=== PATIENT | male | born 1930 | race Caucasian/White ===

== ENCOUNTER 2017-02-08 10:32 | Inpatient (IN) | payer OTHER ==
[~2017-02-08] VITALS: Ht 182.9 cm; Wt 87.1 kg
--- NOTE | ~2017-02-08 | EKG ---
[facility] [place] [address] ELECTROCARDIOGRAM REPORT Name: DAGOBERTO MARCANO SEVERIANO Room #: [id number] Admission: 02/08/17 Attend Phys: Discharge: Date of : 30 Report #: [id number] THIS REPORT FOR: //name// [facility] ED Test Date: 2017-02-08 Test Time: 10:57:31 Pat Name: DAGOBERTO MARCANO Department: Room: Gender: Load Tester: Raissa CARPENTER : 1930 Requested By: Abhilash Rodriguez Order Number: [id number] MD: Shane Barbosa Measurements Intervals [place] Rate: 67 P: 14 UT: 231 QRS: -52 QRSD: 109 T: 24 QT: 432 QTc: 456 Interpretive Statements Sinus rhythm Prolonged UT interval Probable left atrial enlargement Incomplete RBBB and LAFB Left ventricular hypertrophy Compared to ECG 01/10/2017 01:10:32 no change Electronically Signed On 02-08-2017 12:45:12 CDT by Shane Barbosa [email or web address] <ELECTRONICALLY SIGNED> By: Shane Barbosa MD 02/08/17 1245 1057 1057 MD LEIA Brown
--- NOTE | ~2017-02-08 | HC ---
[facility] [place] [address] CONSULTATION Name: DAGOBERTO MARCANO Room #: 412-P [facility] IN M.R.#: [id number] Admission: 02/08/17 Attend Phys: Kwaku Atkinson MD Discharge: 02/10/17 Date of : 30 Report #: [id number] THIS REPORT FOR: //name// CC: NO PCP Kwaku Atkinson DATE OF SERVICE: 02/09/2017 REASON FOR CONSULTATION: Bilateral congenital flat feet deformity. HISTORY OF PRESENT ILLNESS: The patient was admitted to hospital for multiple falls within the last couple of days. I was consulted regarding lack of stability and weakness to bilateral lower extremities, stemming from flat foot deformity. The patient was seen at bedside today, resting comfortably. The patient denies any pain to either foot or ankle and states that he has had flat foot deformity in his entire life. He states that he utilizes custom shoes with custom inserts due to significant of flat foot deformity and was wearing the shoes at time of fall. He denies any other concerns at visit today. REVIEW OF SYSTEMS: Negative other than that discussed in HPI. PAST MEDICAL HISTORY: 1. Hypertension. 2. Hypercholesterolemia. PAST SURGICAL HISTORY: 1. Bilateral knee replacements. 2. Tonsillectomy. 3. Hiatal hernia repair. HOME MEDICATIONS: 1. Simvastatin 20 mg. 2. Metoprolol 25 mg. ALLERGIES: No known drug allergies. SOCIAL HISTORY: Tobacco use, the patient denies. Alcohol use, the patient denies. Recreational drug use, the patient denies. PHYSICAL EXAMINATION: GENERAL: A and O times 3, NAD. LOWER EXTREMITIES: VASCULAR: DP pulses 1/4 bilaterally, PT pulses 0/4 bilaterally. Capillary fill time within normal limits, digits 1 through 5 bilaterally. Moderate lower extremity edema bilaterally with telangiectasias and significant varicosities diffusely throughout. There is significant hemosiderin deposit like changes to [facility] [address] [place] [address] CONSULTATION Name: DAGOBERTO MARCANO Room #: 412-P [facility] IN .R.#: [id number] Admission: 02/08/17 Attend Phys: Kwaku Atkinson MD Discharge: 02/10/17 Date of : 30 Report #: [id number] bilateral lower extremities. DERMATOLOGICAL: Skin is thin, shiny, and atrophic with absent hair growth. Toenails 1 through 5 bilaterally are thickened and dystrophic. Callus formation is noted to distal tip of bilateral second digits. MUSCULOSKELETAL: Significant flat foot deformity is noted bilaterally with abducted forefoot, complete collapsed arches, and medial talar bulge bilaterally. Flatfoot deformity is semirigid bilaterally. There are no focal points of maximal pain and only minimal diffuse tenderness noted throughout both feet and ankles. RADIOLOGY: Three views bilateral ankle and 2 views bilateral foot x-rays were reviewed. There is noted oblique fracture to lateral malleolus at ankle joint level. Minimal diastasis is noted laterally without evidence of significant lateral gutter widening or syndesmotic displacement. Significant flat foot deformity is noted with decreased calcaneal inclination angle bilaterally, abduction of forefoot with uncovering of the talar head bilaterally. Otherwise, no other acute osseous articular abnormalities present. There is noted calcifications of vessels throughout the foot and lower extremity. ASSESSMENT: 1. Left fibular fracture, nondisplaced. 2. Talipes valgus bilaterally. 3. Peripheral vascular disease. PLAN: The patient was seen and examined and all clinical results were reviewed. Complication was had regarding access to radiographs and electronic medical record through [facility] at the time of consultation, Friday, I was unable to review x-rays or report. This was rectified on Friday once [facility] [employer] Department was able to correct error and logged in. At that point, the patient had been discharged and fibular fracture was not seen until after I was obtained access to the radiographs on Friday evening. I was never informed of said fracture and the patient was discharged without appropriate stabilization. I will follow up with the patient in my office to establish immediate care for fibular fracture. No surgical intervention appears to be necessary regarding fracture and the patient would benefit from GameDay style ankle brace as opposed to walking boot or cast due to significant instability and weakness. The patient will also likely benefit from home health care or placement in group home facility during this healing time. The patient should continue with supportive custom shoes and custom inserts given significant flat foot deformity. Flat foot deformity is a chronic condition that does not require emergent surgical correction and the patient may likely benefit from bracing in the future, again this is something that can be done on an outpatient basis and I will follow up with the patient regarding potential [address] [address] CONSULTATION Name: DAGOBERTO MARCANO Room #: 412-P [facility] IN M.R.#: [id number] Admission: 02/08/17 Attend Phys: Kwaku Atkinson MD Discharge: 02/10/17 Date of : 30 Report #: [id number] lower extremity bracing for talipes valgus deformity. The patient is in agreement with treatment plan and will follow up as directed. By: 1712 0102 Eric Llamas, LUISITO /leanna
[2017-02-08 10:32] VITALS: BP 159/103
[~2017-02-08 10:32] MED LIST: CIPRO500 MG; COUMADIN 5 MG TA5 M1 PO; FUROSEMIDE 20 M20 M1 PO; HYDROCODON-ACE1 EAC7 PO; LISINOPRIL20 MG PO; METOPROLOL SUCC25 M1 PO; NORCO 5-325 TA1 EACH PO; NORCO 7.5-3251 EACH PO; PAROXETINE HCL10 MG PO; SIMVASTATIN20 MG PO
[2017-02-08 11:12] LABS: ABSOLUTE NEUTROPHILS 4.5 thou/uL (1.4-8.2); BASOPHILS 0.5 % (0.0-2.0); EOSINOPHILS 1.1 % (0.0-3.0); HEMATOCRIT 41.5 % (42.0-52.0); HEMOGLOBIN 13.5 gm/dL (14.0-18.0); LYMPHOCYTES 24.3 % (24.0-44.0); MCH 30.6 pg (26.0-34.0); MCHC 32.7 g/dL (28.0-37.0); MCV 93.7 fL (80.0-100.0); MONOCYTES 10.4 % (1.0-8.0); PLATELET COUNT 106 thou/uL (150-400); POLYS 63.7 % (36.0-66.0); RBC 4.43 mil/uL (4.50-6.00); RDW 15.7 % (10.5-14.5)
[2017-02-08 11:13] LABS: MANUAL DIFF NO
[2017-02-08 11:23] LABS: ANION GAP 9 mmol/L (7-16); BUN 23 mg/dL (7-18); CALCIUM 8.8 mg/dL (8.5-10.1); CHLORIDE 105 mmol/L (98-107); CO2 25 mmol/L (21-32); CREATININE 0.9 mg/dL (0.6-1.3); GLUCOSE 94 mg/dL (70-99); POTASSIUM 4.5 mmol/L (3.5-5.1); SODIUM 139 mmol/L (136-145)
[2017-02-08 11:30] LABS: ALBUMIN 3.1 g/dL (3.4-5.0); ALKALINE PHOSPHATASE 59 U/L (46-116); SGOT 29 U/L (15-37); SGPT 12 U/L (30-65); TOTAL BILIRUBIN 0.9 mg/dL (<0.1-1.0); TOTAL PROTEIN 6.7 g/dL (6.4-8.2); TROPONIN-I < 0.04 ng/mL (<0.04-0.07)
[2017-02-08 11:34] LABS: URINE BILIRUBIN NEGATIVE (Negative); URINE BLOOD TRACE (Negative); URINE COLOR YELLOW; URINE GLUCOSE-RANDOM* NEGATIVE (Negative); URINE KETONES NEGATIVE (Negative); URINE LEUKOCYTES-REFLEX NEGATIVE (Negative); URINE PROTEIN (DIPSTICK) TRACE (Negative); URINE SPECIFIC GRAVITY 1.015 (1.003-1.035); URINE UROBILINOGEN 0.2 E.U./dl (0.2-1.0)
[2017-02-08 13:54] VITALS: BP 142/79
[2017-02-08 14:45] VITALS: BP 166/98
[2017-02-08 20:41] VITALS: BP 134/71
[2017-02-09 00:02] VITALS: BP 145/73
[2017-02-09 04:00] VITALS: BP 140/82
[2017-02-09 05:14] LABS: EOSINOPHILS 3.9 % (0.0-3.0); HEMATOCRIT 37.5 % (42.0-52.0); HEMOGLOBIN 12.4 gm/dL (14.0-18.0); LYMPHOCYTES 37.7 % (24.0-44.0); MCH 30.7 pg (26.0-34.0); MCHC 33.1 g/dL (28.0-37.0); MCV 92.6 fL (80.0-100.0); MONOCYTES 11.5 % (1.0-8.0); POLYS 45.9 % (36.0-66.0); RBC 4.05 mil/uL (4.50-6.00); RDW 15.5 % (10.5-14.5); WBC 6.6 thou/uL (4.0-11.0)
[2017-02-09 05:16] LABS: MANUAL DIFF NO
[2017-02-09 05:23] LABS: CALCIUM 8.6 mg/dL (8.5-10.1); CREATININE 0.9 mg/dL (0.6-1.3); POTASSIUM 3.8 mmol/L (3.5-5.1)
[2017-02-09 05:55] LABS: PLATELET COUNT 98 thou/uL (150-400); PLATELET ESTIMATE SLIGHTLY DECREASED
[2017-02-09 08:00] VITALS: BP 155/81
[2017-02-09 12:00] VITALS: BP 181/73
[2017-02-09 16:00] VITALS: BP 179/83
[2017-02-09 21:25] VITALS: BP 167/80
[2017-02-10 04:35] VITALS: BP 167/86
[2017-02-10 08:00] VITALS: BP 169/80
[2017-02-10 16:06] VITALS: BP 168/80
== END 2017-02-10 17:34 | disposition home or self-care (01) | DRG 563 ==
LOC: ER 10:32 → 4N 13:26 → EROBS 13:26 → ER 13:54 → 4N 14:00
PROVIDERS: Internal Medicine Geriatric Medicine; Physician Assistant
DX: S82.402A Unspecified fracture of shaft of left fibula, initial encounter for closed fracture (principal); Q66.6 Other congenital valgus deformities of feet; I10 Essential (primary) hypertension; E78.5 Hyperlipidemia, unspecified; I73.9 Peripheral vascular disease, unspecified; E78.00 Pure hypercholesterolemia, unspecified; Z90.49 Acquired absence of other specified parts of digestive tract; Z28.21 Immunization not carried out because of patient refusal; W18.39XA Other fall on same level, initial encounter; Y93.89 Activity, other specified; Y92.89 Other specified places as the place of occurrence of the external cause; Y99.8 Other external cause status
CPT/HCPCS: 10091

== ENCOUNTER 2018-05-03 21:51 | Inpatient (IN) | payer OTHER, SELFPAY ==
[~2018-05-03] VITALS: Ht 182.9 cm; Wt 94.8 kg
--- NOTE | ~2018-05-03 | HC ---
[facility] [place] [address] CONSULTATION Name: DAGOBERTO MARCANO Room #: 462-P ADM IN M.R.#: [id number] Admission: 05/03/18 Attend Phys: Harvey Hook DO Discharge: Date of : 30 Report #: [id number] THIS REPORT FOR: //name// CC: Harvey SALAZAR PCP DATE OF SERVICE: 05/05/2018 Cardiology Consultation CHIEF COMPLAINT: Chest pain. HISTORY OF PRESENT ILLNESS: This is an 88-year-old gentleman presenting with shortness of breath and chest discomfort. He reports having 2 episodes at home, typically occurring with walking. He describes the pain going across the chest area. He denies any associated symptoms of diaphoresis, palpitations or lightheadedness. He has had 2 episodes at home and was admitted to the hospital. Several troponin levels are negative. An echo revealed normal LV systolic function and fulm-rf-xovohgxi aortic insufficiency/mitral regurgitation. A pharmacologic nuclear stress test reveals inferolateral ischemia. The patient has a history of hypertension, hypercholesterolemia, and peripheral neuropathy. He uses a walker for ambulation. PAST MEDICAL HISTORY: Remote history of left calf hematoma, had been on warfarin, for unknown reason. History of hypertension, hypercholesterolemia, history of peripheral neuropathy with falls. ALLERGIES: None. MEDICATIONS AT HOME: Metoprolol 50 mg daily, Zocor 20 mg, and aspirin. SOCIAL HISTORY: The patient lives alone. Denies any tobacco use. FAMILY HISTORY: Negative for premature CAD. REVIEW OF SYSTEMS: A full 10-point review of systems performed. Only the pertinent positives and negatives are described in the HPI. PHYSICAL EXAMINATION: VITAL SIGNS: Blood pressure is 140/80, heart rate is 60 beats per minute. GENERAL APPEARANCE: This is an elderly appearing male in no acute distress. HEENT: Normocephalic. Sclerae are anicteric. ENT: Oral mucosa moist. NECK: Supple. LUNGS: Clear to auscultation. CARDIAC: Regular rate and rhythm, S1, S2 positive, 1/6 systolic murmur. [facility] [address] [place] [address] CONSULTATION Name: DAGOBERTO MARCANO Room #: [facility] ADM IN M.R.#: [id number] Admission: 05/03/18 Attend Phys: Harvey Hook DO Discharge: Date of : 30 Report #: [id number] ABDOMEN: Soft, nontender. EXTREMITIES: No cyanosis, 1+ ankle edema. DATA: ECG reveals sinus rhythm, LVH, incomplete right bundle-branch block, poor R-wave progression. ASSESSMENT AND PLAN: 1. Chest pain, with an abnormal nuclear stress test. He has onset of symptoms with mild levels of physical exertion at home. We discussed the pros and cons of medical therapy versus a cardiac catheterization. Given his presentation, the patient wishes to proceed with an angiogram. 2. 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 3. Hypercholesterolemia, continue with statin therapy. 4. Edema, consider compression stockings and diuretic therapy. <ELECTRONICALLY SIGNED> By: Shane Barbosa MD 05/06/18 0756 0807 0920 Shane Barbosa MD /nt
--- NOTE | ~2018-05-03 | 2DMMODE ---
[place] [address] [facility] [place] [address] 2 D/M-MODE ECHOCARDIOGRAM Name: DAGOBERTO MARCANO EDWIN Room #: 462-P [facility] IN M.R.#: [id number] Admission: 05/03/18 Attend Phys: Harvey Hook, Discharge: Date of : 30 Date of Service: 05/04/18 [facility] Report #: [id number] THIS REPORT FOR: //name// APPROVED REPORT Study performed: 05/04/2018 08:22:30 EXAM: Comprehensive 2D, Doppler, and color-flow Echocardiogram Patient Location: Echo lab Room #: 462 Status: routine BSA: 2.11 HR: 55 bpm BP: 168/86 mmHg Rhythm: NSR Other Information Study Quality: Adequate Indications Dyspnea, chest pain, dizziness. Hx: HTN, HLP 2D Dimensions RVDd: 34.83 mm LVEF(%): 50.60 (>50%) IVSd: 13.68 (7-11mm) LVOT Diam: 23.14 (18-24mm) LVDd: 46.75 mm PWd: 11.90 (7-11mm) Ascending Ao: 49.70 (22-36mm) LVDs: 34.73 (25-40mm) Aortic Root: 48.52 mm Schwab's LVEF: 50.60 % Volumes Left Atrial Volume (Systole) Single Plane 4CH: 61.78 mL Single Plane 2CH: 78.60 mL LA ESV Index: 38.00 mL/m2 Aortic Valve AoV Peak Juni.: 1.81 m/s AO Peak Gr.: 13.10 mmHg LVOT Max P.98 mmHg LVOT Max V: 1.00 m/s SHIRLEY Vmax: 2.32 cm2 Mitral Valve E/A Ratio: 0.8 MV Decel. Time: 510.82 ms [facility] [place] [address] 2 D/M-MODE ECHOCARDIOGRAM Name: DAGOBERTO MARCANO Room #: 462-P [facility] IN M.R.#: [id number] Admission: 05/03/18 Attend Phys: Harevy Hook, Discharge: Date of : 30 Date of Service: 05/04/18 [facility] Report #: [id number] MV E Max Juni.: 0.48 m/s MV A Juni.: 0.60 m/s MV PHT: 148.14 ms IVRT: 129.18 ms Pulmonary Valve PV Peak Juni.: 0.76 m/s PV Peak Gr.: 2.30 mmHg Tricuspid Valve TR Peak Juni.: 3.20 m/s RAP Estimate: 10.00 mmHg TR Peak Gr.: 41.04 mmHg PA Pressure: 51.00 mmHg Left Ventricle The left ventricle is normal size. There is normal LV segmental wall motion. Mild concentric left ventricular hypertrophy. Left ventricular systolic function is normal. LVEF is 55%. Mild diastolic dysfunction is present (impaired relaxation pattern). Right Ventricle The right ventricle is normal size. The right ventricular systolic function is normal. Atria Left atrium is mildly dilated. Right atrium is mildly dilated. Aortic Valve Aortic valve is moderately calcified. Mild to moderate aortic regurgitation. There is no aortic valvular stenosis. Mitral Valve Mitral valve leaflets are mildly thickened. Mild to moderate mitral annular calcification. Mild to moderate mitral regurgitation. No evidence of mitral valve stenosis. Tricuspid Valve The tricuspid valve is normal in structure. Moderate tricuspid regurgitation. Estimated PAP is 50mmHg. Pulmonic Valve The pulmonary valve is normal in structure. Mild pulmonic regurgitation. Great Vessels Aortic root is dilated at 4.9cm. 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 [address] [address] 2 D/M-MODE ECHOCARDIOGRAM Name: DAGOBERTO MARCANO Room #: 462-P [facility] IN [facility]#: [id number] Admission: 05/03/18 Attend Phys: Harvey Hook, Discharge: Date of : 30 Date of Service: 05/04/18 [facility] Report #: [id number] IVC is normal in size and collapses <50% with inspiration. Pericardium There is no pericardial effusion. <Conclusion> Left ventricular systolic function is normal. There is normal LV segmental wall motion. LVEF is 55%. Mild diastolic dysfunction Left atrium is mildly dilated. Aortic valve is moderately calcified. Mild to moderate aortic regurgitation, no stenosis. Mitral valve leaflets are mildly thickened. Mild to moderate mitral regurgitation. Moderate tricuspid regurgitation. Estimated pulmonary artery pressure of 50mmHg. 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 There is no pericardial effusion. <ELECTRONICALLY SIGNED> By: Jeremy Christian MD, FACC 05/04/18 1007 1007 1007 Jeremy Christian MD, FACC /INF
--- NOTE | ~2018-05-03 | EKG ---
[place] [address] [facility] [email or web address] [address] ELECTROCARDIOGRAM REPORT Name: DAGOBERTO MARCANO Room #: 462-P ADM IN M.R.#: [id number] Admission: 05/03/18 Attend Phys: Harvey Hook DO Discharge: Date of : 30 Report #: [id number] THIS REPORT FOR: //name// [facility] ED Test Date: 2018-05-03 Test Time: 21:58:09 Pat Name: DAGOBERTO MARCANO Department: Room: Gender: M Supervisor [employer]: DELMI : 1930 Requested By: Angela Maciel Order Number: [id number] MD: Jeremy Christian Measurements Intervals [place] Rate: 58 P: -8 [place]: 243 QRS: -46 QRSD: 110 T: 31 QT: 438 QTc: 431 Interpretive Statements Sinus rhythm Prolonged [place] interval Incomplete RBBB and LAFB RSR' in V1 or V2, right VCD Left ventricular hypertrophy Poor R wave progression Compared to ECG 02/08/2017 10:57:31 No significant change was found Electronically Signed On 05-04-2018 8:58:25 CDT by Jeremy Christian [email or web address] <ELECTRONICALLY SIGNED> By: Jeremy Christian MD, [facility] 05/04/18 0858 2158 2158 Jeremy Christian MD, [facility] /EPI
--- NOTE | ~2018-05-03 | CATHLAB ---
[place] [address] [employer] [place] [address] INVASIVE PROCEDURE REPORT Name: JEETDAGOBERTO العلي Room #: 462-P ADM IN ..#: [id number] Admission: 05/03/18 Attend Phys: Harvey Hook, Discharge: Date of : 30 Date of Service: 05/05/18 1819 Report #: [id number] THIS REPORT FOR: //name// APPROVED REPORT Study performed: 05/05/2018 12:37:22 Patient Details Patient Status: In-Patient Room #: The patient is a 88 year-old male Event Personnel Shane Barbosa Treating Inspector, Rhoda Morley Penny, Wes RN, David Richard Sudduth, Jeff RN historical manuscripts curator Performed Left Heart Cath w/or w/o Coronaries [id number] [facility] Indication Dyspnea, Positive stress test, Chest pain Risk Factors HypercholesterolemiaPhysical Activity, Hypertension Procedure Narrative The Right Groin^ was infiltrated with 1% Lidocaine subcutaneous anesthesia. A PINNACLE 4FR Sheath #[id number] sheath was inserted into the RFA^. Coronary angiography was performed using coronary diagnostic catheters. The right coronary system was accessed and visualized with a JR4 catheter. The left coronary system was accessed and visualized with a 4FR JL 5.0 #[id number] catheter. The left ventricle was accessed and visualized with a PIGTAIL catheter. Hemostasis was obtained with manual pressure following sheath removal without any complications. The patient tolerated the procedure well and there were no complications associated with the procedure. There was no hematoma. Intraoperative Conscious Sedation Sedation start time: 13.01 Case end Time: 13.23 Fentanyl 50 mcg Versed 1 mg Fluoro Time: 5.58 minutes Dose: DAP 4676.60 cGycm2 682 mGy [facility] [address] [place] [address] INVASIVE PROCEDURE REPORT Name: DAGOBERTO MARCANO Room #: 462-P [facility] IN ..#: [id number] Admission: 05/03/18 Attend Phys: Harvey Hook, Discharge: Date of : 30 Date of Service: 05/05/18 1819 Report #: [id number] Contrast Type and Amount: Omnipaque 60 ml Coronary Angiography The patient's coronary anatomy is right dominant. Diagnostic Cath Left Main Patent vessel, no flow-limiting lesions. LAD Moderate size caliber vessel, with mild disease in the mid segment, less than 20%. Diagonal 1 Patent vessel, no flow limiting lesions. Circumflex Moderate size caliber vessel, with no flow-limiting lesions. OM1 Patent vessel, with no flow-limiting lesions. OM2 Patent vessel, with no flow-limiting lesions. Right Coronary Dominant vessel, with no flow-limiting lesions. R PDA Patent vessel, with no flow-limiting lesions. RPLV Patent vessel, with no flow-limiting lesions. Ramus Moderate size caliber vessel, with no flow-limiting lesions. Left Ventriculography Left Ventriculography was not performed. Ejection Fraction was 55-60% based off patient's Nuclear Cardiac Stress Test. An LVEDP was measured and there is no gradient across the outflow tract. Hemodynamics The aortic pressure is 157/65 mmHg with a mean of 102 mmHg. The left ventricular pressure is 150/9 mmHg with a mean of mmHg. The left ventricular end diastolic pressure is 15 mmHg. Conclusion 1. Patent coronary arteries, with mild disease in the LAD. 2. Normal LV systolic function. 3. Recommend risk factor management. <ELECTRONICALLY SIGNED> By: Shane Barbosa MD 05/05/181818 18 18 Shane Barbosa MD /INF
[2018-05-03 21:52] VITALS: BP 177/80
[2018-05-03 22:05] LABS: HEMATOCRIT 42.4 % (42.0-52.0); HEMOGLOBIN 14.3 gm/dL (14.0-18.0); MCH 31.8 pg (26.0-34.0); MCHC 33.7 g/dL (28.0-37.0); MCV 94.5 fL (80.0-100.0); PLATELET COUNT 114 thou/uL (150-400); RBC 4.48 mil/uL (4.50-6.00); RDW 15.1 % (10.5-14.5); WBC 8.6 thou/uL (4.0-11.0)
[2018-05-03 22:16] LABS: ANION GAP 4 mmol/L (7-16); BUN 29 mg/dL (7-18); CALCIUM 9.1 mg/dL (8.5-10.1); CHLORIDE 102 mmol/L (98-107); CO2 29 mmol/L (21-32); GLUCOSE 92 mg/dL (74-106); POTASSIUM 4.6 mmol/L (3.5-5.1); SODIUM 135 mmol/L (136-145)
[2018-05-03 22:25] LABS: TROPONIN-I < 0.04 ng/mL (<0.06)
[2018-05-03] MEDS ORDERED: METOPROLOL SUCC50 MG PO (22:50)
[2018-05-03] MEDS ORDERED: ASPIR 8181 M1 PO (22:51)
[2018-05-03 23:00] LABS: ANISOCYTOSIS SLIGHT; MACROCYTES SLIGHT
[2018-05-03 23:14] VITALS: BP 156/72
[2018-05-03 23:26] VITALS: BP 159/71
[2018-05-03 23:30] VITALS: BP 193/85
[2018-05-04 03:46] VITALS: BP 168/86
[2018-05-04 06:52] LABS: URINE BILIRUBIN NEGATIVE (Negative); URINE BLOOD NEGATIVE (Negative); URINE CLARITY CLEAR; URINE COLOR YELLOW; URINE GLUCOSE-RANDOM* NEGATIVE (Negative); URINE KETONES NEGATIVE (Negative); URINE LEUKOCYTES-REFLEX NEGATIVE (Negative); URINE NITRITE-REFLEX NEGATIVE (Negative); URINE PROTEIN (DIPSTICK) NEGATIVE (Negative); URINE UROBILINOGEN 0.2 E.U./dl (0.2-1.0)
[2018-05-04 06:52] LABS: CHOLESTEROL 144 mg/dL (<200); DIRECT BILIRUBIN 0.2 mg/dL (<0.1-0.3); SGOT 23 U/L (15-37); SGPT 17 U/L (30-65); TOTAL BILIRUBIN 0.5 mg/dL (<0.1-1.0); TOTAL PROTEIN 6.6 g/dL (6.4-8.2); TRIGLYCERIDE 60 mg/dL (<150); VLDL 12 mg/dL (<40)
[2018-05-04 07:06] LABS: HDL CHOLESTEROL 46 mg/dL (>40); LDL CHOLESTEROL 86 mg/dL (<100); TC:HDL 3.1 Ratio (Not establshd)
[2018-05-04 09:58] VITALS: BP 172/69
[2018-05-04 21:01] VITALS: BP 134/61
[2018-05-05 04:17] VITALS: BP 131/60
[2018-05-05 05:40] LABS: ABSOLUTE NEUTROPHILS 4.1 thou/uL (1.4-8.2); BASOPHILS 0.2 % (0.0-2.0); EOSINOPHILS 3.7 % (0.0-3.0); HEMATOCRIT 46.4 % (42.0-52.0); HEMOGLOBIN 15.1 gm/dL (14.0-18.0); LYMPHOCYTES 39.2 % (24.0-44.0); MCH 31.1 pg (26.0-34.0); MCHC 32.4 g/dL (28.0-37.0); MONOCYTES 10.9 % (1.0-8.0); PLATELET COUNT 125 thou/uL (150-400); RBC 4.84 mil/uL (4.50-6.00); RDW 15.2 % (10.5-14.5); WBC 8.9 thou/uL (4.0-11.0)
[2018-05-05 05:59] LABS: CALCIUM 8.9 mg/dL (8.5-10.1); POTASSIUM 4.1 mmol/L (3.5-5.1)
[2018-05-05 06:42] LABS: TSH 6.259 uIU/mL (0.358-3.740)
[2018-05-05 07:52] VITALS: BP 167/77
[2018-05-05 15:39] VITALS: BP 173/76
[2018-05-05 19:20] VITALS: BP 130/71
[2018-05-06 00:14] VITALS: BP 172/68
[2018-05-06 03:46] VITALS: BP 168/78
[2018-05-06 08:00] VITALS: BP 169/68
[2018-05-06 12:30] VITALS: BP 169/68
[2018-05-06 13:33] VITALS: BP 169/68
[2018-05-06] MEDS ORDERED: VITAMIN B-12500 MCG PO (14:04)
[2018-05-06] MEDS ORDERED: B12INJ IM (14:04)
== END 2018-05-06 14:55 | disposition home health service (06) | DRG 287 ==
LOC: ER 21:51 → EROBS 23:04 → 4W 23:04 → ENTRNSPT 05-06 14:30 → EDTRNSPTSTS 05-06 14:31 → 4W 05-06 14:55
PROVIDERS: Emergency Medicine; Internal Medicine Geriatric Medicine; Nurse Practitioner Acute Care
PROC: 4A023N7 Measurement of Cardiac Sampling and Pressure, Left Heart, Percutaneous Approach (ICD-10-PCS; principal; 2018-05-05)
PROC: B2111ZZ Fluoroscopy of Multiple Coronary Arteries using Low Osmolar Contrast (ICD-10-PCS; principal; 2018-05-05)
DX: R07.9 Chest pain, unspecified (principal); I10 Essential (primary) hypertension; E78.00 Pure hypercholesterolemia, unspecified; D69.6 Thrombocytopenia, unspecified; I08.3 Combined rheumatic disorders of mitral, aortic and tricuspid valves; G62.9 Polyneuropathy, unspecified; E86.0 Dehydration; E53.8 Deficiency of other specified B group vitamins; Z96.653 Presence of artificial knee joint, bilateral; Z79.82 Long term (current) use of aspirin; Z79.899 Other long term (current) drug therapy
CPT/HCPCS: 10045

== ENCOUNTER 2018-11-06 09:12 | Emergency (ER) | payer OTHER ==
[~2018-11-06] VITALS: Ht 180.3 cm; Wt 98.9 kg
--- NOTE | ~2018-11-06 | EKG ---
[place] [address] [employer] [facility] [place] [address] ELECTROCARDIOGRAM REPORT Name: DAGOBERTO MARCANO Room #: DEP Mandy#: [id number] Admission: 11/06/18 Attend Phys: Discharge: 11/06/18 Date of : 30 Report #: [id number] THIS REPORT FOR: //name// [facility] ED Test Date: 2018-11-06 Test Time: 09:19:33 Pat Name: DAGOBERTO MARCANO Department: Room: Gender: M Licensed Aircraft Maintenance Engineer: KFRIEDT : 1930 Requested By: Norberto Dc Order Number: [id number] MD: Qasim Andrade Measurements Intervals [place] Rate: 59 P: 22 UT: 256 QRS: -52 QRSD: 110 T: 23 QT: 438 QTc: 434 Interpretive Statements Sinus rhythm Prolonged [place] interval Incomplete RBBB and LAFB Consider right ventricular hypertrophy Left ventricular hypertrophy Anterior Q waves, possibly due to LVH Compared to ECG 05/03/2018 21:58:09 Q waves now present Poor R-wave progression no longer present Electronically Signed On 11-06-2018 20:00:16 MUSIC TYPOGRAPHER by Qasim Andrade [email or web address] <ELECTRONICALLY SIGNED> By: Qasim Andrade MD 11/06/181999 8 8 Qasim Andrade MD /EPI
[~2018-11-06 09:12] MED LIST changes: +ASPIR 8181 M1 PO; +B12INJ IM; +METOPROLOL SUCC50 MG PO; +VITAMIN B-12500 MCG PO
[2018-11-06 09:44] LABS: ANION GAP 5 mmol/L (7-16); BUN 31 mg/dL (7-18); CALCIUM 9.2 mg/dL (8.5-10.1); CHLORIDE 102 mmol/L (98-107); CO2 32 mmol/L (21-32); GLUCOSE 99 mg/dL (74-106); POTASSIUM 4.9 mmol/L (3.5-5.1); SODIUM 139 mmol/L (136-145)
[2018-11-06 09:45] LABS: HEMATOCRIT 46.3 % (42.0-52.0); HEMOGLOBIN 14.7 gm/dL (14.0-18.0); MCH 30.1 pg (26.0-34.0); MCHC 31.7 g/dL (28.0-37.0); MCV 95.1 fL (80.0-100.0); RBC 4.87 mil/uL (4.50-6.00); RDW 15.7 % (10.5-14.5); WBC 7.5 thou/uL (4.0-11.0)
[2018-11-06 09:53] LABS: ALBUMIN 3.1 g/dL (3.4-5.0); MAGNESIUM 1.9 mg/dL (1.8-2.4); SGOT 24 U/L (15-37); SGPT 15 U/L (30-65); TOTAL BILIRUBIN 0.5 mg/dL (<0.1-1.0); TOTAL PROTEIN 7.1 g/dL (6.4-8.2); TROPONIN-I <0.06 ng/mL (<0.06)
[2018-11-06 09:59] LABS: URINE BILIRUBIN NEGATIVE (Negative); URINE BLOOD NEGATIVE (Negative); URINE CLARITY CLEAR; URINE COLOR YELLOW; URINE GLUCOSE-RANDOM* NEGATIVE (Negative); URINE KETONES NEGATIVE (Negative); URINE LEUKOCYTES NEGATIVE (Negative); URINE NITRITE NEGATIVE (Negative); URINE PROTEIN (DIPSTICK) NEGATIVE (Negative); URINE SPECIFIC GRAVITY 1.015 (1.005-1.035); URINE UROBILINOGEN 0.2 E.U./dl (0.2-1.0)
[2018-11-06 10:22] LABS: ABSOLUTE NEUTROPHILS 3.4 thou/uL (1.4-8.2); ATYPICAL LYMPHS 2 %; PLATELET COUNT 84 thou/uL (150-400)
[2018-11-06 10:23] LABS: LARGE PLATELETS RARE
[2018-11-06 11:15] VITALS: BP 162/79
== END 2018-11-06 11:15 | disposition home or self-care (01) ==
LOC: ER 09:12
PROVIDERS: Emergency Medicine
DX: I45.2 Bifascicular block (principal); I10 Essential (primary) hypertension; I51.7 Cardiomegaly; R42 Dizziness and giddiness; E78.00 Pure hypercholesterolemia, unspecified; G62.9 Polyneuropathy, unspecified; Z90.89 Acquired absence of other organs; Z96.653 Presence of artificial knee joint, bilateral

== ENCOUNTER 2019-03-22 05:20 | Emergency (ER) | payer OTHER ==
[~2019-03-22] VITALS: Ht 182.9 cm; Wt 90.7 kg
[2019-03-22 05:44] LABS: HEMATOCRIT 43.1 % (42.0-52.0); HEMOGLOBIN 14.3 gm/dL (14.0-18.0); MCH 31.4 pg (26.0-34.0); MCHC 33.2 g/dL (28.0-37.0); MCV 94.6 fL (80.0-100.0); PLATELET COUNT 95 thou/uL (150-400); RBC 4.55 mil/uL (4.50-6.00); RDW 15.4 % (10.5-14.5); WBC 7.4 thou/uL (4.0-11.0)
[2019-03-22 05:51] LABS: ANION GAP 7 mmol/L (7-16); BUN 24 mg/dL (7-18); CHLORIDE 102 mmol/L (98-107); CO2 28 mmol/L (21-32); CREATININE 1.1 mg/dL (0.7-1.3); GLUCOSE 95 mg/dL (74-106); POTASSIUM 4.5 mmol/L (3.5-5.1); SODIUM 137 mmol/L (136-145)
[2019-03-22 05:58] LABS: ALBUMIN 3.2 g/dL (3.4-5.0); SGOT 21 U/L (15-37); SGPT 12 U/L (30-65); TOTAL BILIRUBIN 0.7 mg/dL (<0.1-1.0); TOTAL PROTEIN 6.8 g/dL (6.4-8.2); TROPONIN-I <0.06 ng/mL (<0.06)
[2019-03-22 06:50] LABS: ABSOLUTE NEUTROPHILS 3.6 thou/uL (1.4-8.2)
[2019-03-22 06:51] LABS: LARGE PLATELETS OCCASIONAL; PLATELET ESTIMATE DEC
[2019-03-22 07:46] LABS: URINE BILIRUBIN NEGATIVE (Negative); URINE BLOOD NEGATIVE (Negative); URINE CLARITY CLEAR; URINE COLOR YELLOW; URINE GLUCOSE-RANDOM* NEGATIVE (Negative); URINE KETONES NEGATIVE (Negative); URINE LEUKOCYTES-REFLEX NEGATIVE (Negative); URINE NITRITE-REFLEX NEGATIVE (Negative); URINE PROTEIN (DIPSTICK) NEGATIVE (Negative); URINE UROBILINOGEN 0.2 E.U./dl (0.2-1.0)
[2019-03-22 07:55] VITALS: BP 121/53
--- NOTE | 2019-03-23 08:07 | EKG ---
[place] [address] [place] [address] ELECTROCARDIOGRAM REPORT Name: JEETDAGOBERTO Room #[facility] [id number] ������������������ Admission: 03/22/19 ������������������ Attend Phys: Discharge: 03/22/19 ������������������ Date of : 30 Report #: [id number] ����������������������������������������������������������������� [id number] THIS REPORT FOR: //name// [facility] ED Test Date: 2019-03-22 Test Time: 06:04:06 Pat Name: DAGOBERTO MARCANO Department: Room: Gender: M Guest Relations Officer: : 1930 Requested By: Teagan Zarate Order Number: [id number] MD: Jeremy Christian Measurements Intervals [place] Rate: 78 P: [place]: QRS: -52 QRSD: 108 T: 45 QT: 403 QTc: 460 Interpretive Statements Atrial fibrillation LAFB RSR' in V1 or V2, right VCD Left ventricular hypertrophy Poor R wave progression Compared to ECG 11/06/2018 09:19:33 atrial fibrillation has replaced sinus rhythm Electronically Signed On 03-23-2019 8:07:39 CDT by Jeremy Christian [email or web address] ��������������������������������������������� <ELECTRONICALLY SIGNED> ���������������������������������������� By: Jeremy Christian MD, [facility] ��������������������������������������������� 05806 3 3 Jeremy Christian MD, [facility] /EPI
== END 2019-03-22 08:45 | disposition home or self-care (01) ==
LOC: ER 05:20
PROVIDERS: Student in an Organized Health Care Education/Training Program
DX: S51.012A Laceration without foreign body of left elbow, initial encounter (principal); R55 Syncope and collapse; E78.5 Hyperlipidemia, unspecified; I10 Essential (primary) hypertension; E78.00 Pure hypercholesterolemia, unspecified; G62.9 Polyneuropathy, unspecified; Z96.653 Presence of artificial knee joint, bilateral; Z98.890 Other specified postprocedural states; W18.39XA Other fall on same level, initial encounter; Y93.89 Activity, other specified; Y92.89 Other specified places as the place of occurrence of the external cause; Y99.8 Other external cause status